=== PATIENT | female | born 1990 | race Caucasian/White ===

== ENCOUNTER 2018-01-18 22:53 | Emergency (ER) | payer BC ==
--- NOTE | 2018-01-18 23:18 | ED ---
Female Urogenital HPI - General Chief complaint: Vaginal Bleeding Stated complaint: -Cramping Time Seen by Provider: 01/18/18 23:00 Source: patient, RN notes reviewed Mode of arrival: ambulatory Limitations: no limitations - History of Present Illness Initial comments: This is a 27-year-old A1 female who presents to the emergency department with chief complaint of vaginal bleeding. Patient states that based on last menstrual period, she should be 5-6 weeks . She states she has yet to follow-up with an CORE SHAPER. Patient states that this evening at approximately 9 PM she began to develop some abdominal cramping and noticed a light pinkish blood while using the bathroom. Approximately 10 PM she noticed an increase in the vaginal bleeding and states that it was dripping. She states that it has not been a tremendous amount and has not filled an entire pad. Denies fevers or chills, nausea or vomiting, diarrhea or constipation. - Related Data Home Medications Medication Instructions Recorded Confirmed Pnv No.95/Ferrous Fum/Folic AC 1 each PO DAILY 01/18/18 01/18/18 [ Multivitamin Tablet] Allergies Allergy/AdvReac Type Severity Reaction Status Date / Time No Known Allergies Allergy Verified 01/18/18 22:58 Review of Systems ROS Statement: Those systems with pertinent positive or pertinent negative responses have been documented in the HPI. ROS Other: All systems not noted in ROS Statement are negative. Past Medical History Past Medical History: No Reported History History of Any Multi-Drug Resistant Organisms: None Reported Past Surgical History: Tonsillectomy Additional Past Surgical History / Comment(s): D&C Past Psychological History: No Psychological Hx Reported Smoking Status: Former smoker Past Alcohol Use History: None Reported Past Drug Use History: None Reported General Exam - General Exam Comments Initial Comments: General: Awake and alert, well-developed; in no apparent distress. HEENT: Head atraumatic, normocephalic. Pupils are equal, round and reactive to light. Extraocular movements intact. Oropharynx moist without erythema or exudate. Neck: Supple. Normal ROM. Cardiovascular: Regular rate and rhythm. No murmurs, rubs or gallops. Chest symmetrical. Respiratory: Lungs clear to auscultation bilaterally. No wheezes, rales or rhonchi. Normal respiratory effort with no use of accessory muscles. Abdomen: Soft, non-tender, non-distended. No rigidity, rebound or guarding. Normal bowel sounds in all 4 quadrants. Musculoskeletal: Normal ROM, no tenderness bilateral upper and lower extremities. Ambulating normally. Skin: [place], warm and dry without rashes or lesions. Neurological: Alert and oriented x3. CN II-XII grossly intact. Speech is fluent and answers are appropriate. No focal neuro deficits. Psychiatric: Normal mood and affect. No overt signs of depression or anxiety noted. Limitations: no limitations Course Vital Signs 01/18/18 22:55 Temperature 99.1 F Pulse Rate 79 Respiratory 20 Rate Blood Pressure 130/75 O2 Sat by Pulse 100 Oximetry Medical Decision Making - Medical Decision Making This is a 27-year-old female who states that she is 5-6 weeks who presents to the emergency department with chief complaint of vaginal bleeding. HCG Quant was 13.5. Ultrasound revealed an empty uterus and no evidence of an ectopic . Patient does have some abdominal cramping and continues to have some vaginal bleeding. Recommended repeat of serum hCG on January 21 as well as follow-up with her CORE SHAPER. Patient is in no acute distress and will be discharged home at this time. She is in agreement with plan and voices understanding. All questions were answered. - Lab Data Lab Results 01/18/18 01/18/18 Range/Units 23:33 23:33 HCG, Quant 13.5 mIU/mL Blood Type O Positive Blood Type Recheck No - Radiology Data Radiology results: report reviewed Obstetrical ultrasound impression: Uterus is empty. No adnexal mass or free fluid. No sign of ectopic . No endometrial thickening seen. As read by Dr. Calzada. Disposition Clinical Impression: Threatened Disposition: HOME SELF-CARE Condition: Good Instructions: Threatened Miscarriage (ED) Additional Instructions: Please have serum hCG Quant repeated on January 21. 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 Please follow up with primary care provider within 1-2 days. Return to emergency department if symptoms should worsen or any concerns arise. Referrals: Lester Donaldson DO [Primary Care Provider] - 1-2 days Time of Disposition: 00:50
--- NOTE | 2018-01-19 00:15 | US ---
EXAMINATION TYPE: US OB <= 14 wk fetus DATE OF EXAM: 01/18/2018 COMPARISON: NONE CLINICAL HISTORY: pain/vaginal bleeding. EXAM PERFORMED: Transvaginal (TV) and Transabdominal (TA) EXAM MEASUREMENTS: GESTATIONAL AGE / DATING Physician Established: Not yet established Dates by LMP: (5 weeks/2 days) EDC: 09/18/18 Dates by First Scan: No previous this is first scan Dates by Current Scan for: Unable to date by today's study MATERNAL ANATOMY Uterus: 7.6 x 4.2 x 5.7cm Right Ovary: 2.8 x 1.8 x 1.9cm Left Ovary: 2.1 x 1.9 x 3.2cm Post CDS / Adnexa: wnl Presence of free fluid: wnl GESTATION / SURVEY Endometrium measures 0.9cm IUP: No IUP seen at this time Nuchal Translucency 10-14wks (normal less than 3mm): Date of LMP: 12/12/17 Beta HcG (if available): Not available at this time IMPRESSION: Uterus is empty. No adnexal mass or free fluid. No sign of ectopic . No endometrial thickeni ng seen.
[2018-01-19 01:01] VITALS: BP 115/88; PULSE 64; RESP 18; TEMP 98
== END 2018-01-19 01:01 | disposition home or self-care (01) ==
LOC: EC 22:53
DX: O20.0 Threatened abortion (principal); Z3A.01 Less than 8 weeks gestation of pregnancy; Z87.891 Personal history of nicotine dependence; Z79.899 Other long term (current) drug therapy
CPT/HCPCS: 36415; 76801; 76817; 84702; 86900; 86901; 99284

== ENCOUNTER → 2018-01-20 | Outpatient (CLI) | payer BC | END | disposition home or self-care (01) | LOC: LABWHC1 15:37 | PROVIDERS: ATTEND Physician Assistant Medical | DX: O20.0 Threatened abortion (principal); Z3A.00 Weeks of gestation of pregnancy not specified | CPT/HCPCS: 36415; 84702 ==

== ENCOUNTER 2018-01-28 22:50 | Emergency (ER) | payer BC ==
--- NOTE | 2018-01-29 01:14 | US ---
EXAMINATION TYPE: US OB <=14 wks transvag DATE OF EXAM: 01/29/2018 COMPARISON: NONE CLINICAL HISTORY: Pain. Cramping EXAM PERFORMED: Transvaginal (TV) and Transabdominal (TA) EXAM MEASUREMENTS: GESTATIONAL AGE / DATING Physician Established: Not yet established Dates by LMP: (6 weeks/6 days) EDC: 09/18/2018 Dates by First Scan: (5 weeks/2 days) EDC: 09/18/2018 Dates by Current Scan for: No IUP seen at this time MATERNAL ANATOMY Uterus: 8.6 x 4.8 x 4.6 cm Right Ovary: 3.0 x 1.8 x 2.5 cm Left Ovary: 2.9 x 1.5 x 2.1 cm Post CDS / Adnexa: Wnl Presence of free fluid: NO Presence of corpus luteal cyst: No GESTATION / SURVEY IUP: No IUP seen at this time Nuchal Translucency 10-14wks (normal less than 3mm): Date of LMP: 12/12/2017 Beta HcG (if available): Not available at this time No IUP seen at this time, question possibe small gestational sac seen. IMPRESSION: There is a 2 mm tiny fluid collection in the uterine fundus. No adnexal mass or free fluid. Multiple follicular type cysts on both ovaries.
[2018-01-29 01:15] LABS: Amorphous Sediment,Urine Rare /hpf; Appearance,Urine Cloudy (Clear); Bacteria,Urine Many /hpf; Bilirubin,Urine Negative (Negative); Blood,Urine Negative (Negative); Color,Urine Yellow; Glucose,Urine (UA) Negative (Negative); Ketones,Urine Negative (Negative); Leukocyte Esterase,Urine Negative (Negative); Mucus,Urine Rare /hpf; Nitrite,Urine Negative (Negative); Protein,Urine Negative (Negative); RBC,Urine 6 /hpf (0-5); Squamous Epithelial Cell,Urine 12 /hpf (0-4); Urobilinogen,Urine <2.0 mg/dL (<2.0); WBC,Urine 1 /hpf (0-5)
--- NOTE | 2018-01-29 01:32 | ED ---
Female Urogenital HPI - General Chief complaint: Vaginal Bleeding Stated complaint: revisit/poss miscarriage Time Seen by Provider: 01/28/18 23:52 Source: patient, RN notes reviewed, old records reviewed Mode of arrival: ambulatory Limitations: no limitations - History of Present Illness Initial comments: This patient is a 27-year-old female presents emergency Department chief complaint of fainting vaginal bleeding today. She reports that she is early , she thinks that she is approximately 7 weeks based on her dates but has not sure if this is accurate. Patient states that she was seen a few weeks ago for threatened miscarriage. She did repeat blood work at her [facility]'s office on Saturday and her hCG was 30. They report that she had some lower pelvic pain and cramping. No significant bleeding at this time. No nausea vomiting, fevers, chills, changes in urination or bowel habits. - Related Data Home Medications Medication Instructions Recorded Confirmed Pnv No.95/Ferrous Fum/Folic AC 1 each PO DAILY 01/18/18 01/18/18 [ Multivitamin Tablet] Allergies Allergy/AdvReac Type Severity Reaction Status Date / Time No Known Allergies Allergy Verified 01/28/18 23:18 Review of Systems ROS Statement: Those systems with pertinent positive or pertinent negative responses have been documented in the HPI. ROS Other: All systems not noted in ROS Statement are negative. Past Medical History Past Medical History: No Reported History History of Any Multi-Drug Resistant Organisms: None Reported Past Surgical History: Tonsillectomy Additional Past Surgical History / Comment(s): D&C Past Psychological History: No Psychological Hx Reported Smoking Status: Former smoker Past Alcohol Use History: None Reported Past Drug Use History: None Reported General Exam - General Exam Comments Initial Comments: Well-appearing 27-year-old female. Patient presents very anxious. No acute distress. Limitations: no limitations General appearance: alert, in no apparent distress Head exam: Present: atraumatic, normocephalic, normal inspection Eye exam: Present: normal appearance, PERRL, EOMI. Absent: scleral icterus, conjunctival injection, periorbital swelling ENT exam: Present: normal exam, mucous membranes moist Neck exam: Present: normal inspection. Absent: tenderness, meningismus, lymphadenopathy Respiratory exam: Present: normal lung sounds bilaterally. Absent: respiratory distress, wheezes, rales, rhonchi, stridor Cardiovascular Exam: Present: regular rate, normal rhythm, normal heart sounds. Absent: systolic murmur, diastolic murmur, rubs, gallop, clicks GI/Abdominal exam: Present: soft, normal bowel sounds. Absent: distended, tenderness, guarding, rebound, rigid External exam: Present: normal external exam Speculum exam: Present: normal speculum exam, vaginal bleeding (Patient had scant vaginal bleeding noted. No significant clotting or major concerns at this time.). Absent: erythema, vaginal discharge, cervical discharge By manual exam: Present: normal by manual exam. Absent: cervical motion tenderness Back exam: Present: normal inspection Neurological exam: Present: alert, oriented X3, CN II-XII intact Psychiatric exam: Present: normal affect, normal mood Course Vital Signs 01/28/18 01/29/18 23:14 01:46 Temperature 99.2 F 98.0 F Pulse Rate 95 83 Respiratory 16 18 Rate Blood Pressure 106/68 109/66 O2 Sat by Pulse 98 99 Oximetry Medical Decision Making - Medical Decision Making 27-year-old female presents today chief complaint of vaginal bleeding concern for miscarriage. She states she is currently 7 weeks . Patient's hCG today is approximately 300. I discussed also be relatively normal compared to her Her last hCG. She does have some scant bleeding but there does not appear any clots or any obvious signs of miscarriage at this time. Ultrasound was unable to identify an intrauterine however there does appear to be a small what appears to be gestational sac within the uterus. Patient was informed of all his results. 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 Repeat blood work in 2 days. She had a previous blood type test in one to weeks ago which was O+. Discussed no need for RhoGAM. Patient agrees to treatment plan will comply. Return parameters were discussed. - Lab Data Lab Results 01/28/18 01/29/18 01/29/18 Range/Units 23:41 00:15 01:15 HCG, Quant 236.8 mIU/mL Urine Color Yellow Urine Appearance Cloudy H (Clear) Urine pH 7.0 (5.0-8.0) Ur Specific [place] 1.020 (1.001-1.035) Urine Protein Negative (Negative) Urine Glucose (UA) Negative (Negative) Urine Ketones Negative (Negative) Urine Blood Negative (Negative) Urine Nitrite Negative (Negative) Urine Bilirubin Negative (Negative) Urine Urobilinogen <2.0 (<2.0) mg/dL Ur Leukocyte Esterase Negative (Negative) Urine RBC 6 H (0-5) /hpf Urine WBC 1 (0-5) /hpf Ur Squamous Epith Cells 12 H (0-4) /hpf Amorphous Sediment Rare H (None) /hpf Urine Bacteria Many H (None) /hpf Urine Mucus Rare H (None) /hpf Trichomonas Ag (Rapid) Negative (Negative) - Radiology Data Radiology results: report reviewed Shows a 2 Mm Tiny Fluid Collection within the Uterine Fundus. No Adnexal Mass or Free Fluid. Multiple Follicular-type Cysts on Both Ovaries. Disposition Clinical Impression: Threatened miscarriage in early Disposition: HOME SELF-CARE Condition: Good Instructions: Threatened Miscarriage (ED) Additional Instructions: Patient has a follow-up with her [facility] and BP her blood work in approximately 2 days. Return to the emergency department if any alarming signs or symptoms occur. Referrals: Lester Donaldson DO [Primary Care Provider] - 1-2 days Time of Disposition: 01:31
[2018-01-29 01:47] VITALS: BP 109/66; PULSE 83; RESP 18; TEMP 98
[2018-01-30 16:20] LABS: C. trachomatis,PCR Negative (Neg,Equiv); Chlamydia trachomatis Source Vagina; N. gonorrhoeae,PCR Negative (Neg,Equiv); Neisseria Source Vagina
== END 2018-01-29 01:47 | disposition home or self-care (01) ==
LOC: EC 22:50
DX: O20.0 Threatened abortion (principal); Z87.891 Personal history of nicotine dependence; Z3A.01 Less than 8 weeks gestation of pregnancy
CPT/HCPCS: 36415; 76801; 76817; 81001; 84702; 87070; 87205; 87491; 87591; 87808; 99284

== ENCOUNTER → 2022-02-14 | Outpatient (CLI) | payer BC ==
[2022-02-14 15:20] LABS: T4, Free (Free Thyroxine) 0.74 ng/dL (0.78-2.19)
== END | disposition home or self-care (01) ==
LOC: LABWHC1 13:37
PROVIDERS: ATTEND Internal Medicine Endocrinology, Diabetes & Metabolism
DX: E05.90 Thyrotoxicosis, unspecified without thyrotoxic crisis or storm (principal)
CPT/HCPCS: 36415; 84439; 84443; 84445; 84480; 86376

== ENCOUNTER → 2024-10-27 | Outpatient (CLI) | payer BC ==
--- NOTE | 2024-10-27 14:42 | USB ---
Reason for Exam: Clinical finding. Patient History: Menarche at age 13. First Full-Term at age 20. Hysterectomy at age 33. Patient has history of breast feeding. Technique: Method: Targeted. Findings: The area of palpable concern of the left breast, the axilla of the left breast and the retroareolar of the left breast were scanned. No solid or cystic masses are identified.. Overall Assessment: Negative, BI-RAD 1 Management: Diagnostic Mammogram of the left breast in 6 months. A clinical breast exam by your physician is recommended on an annual basis and results should be correlated with mammographic findings. This exam should not preclude additional follow-up of suspicious palpable abnormalities. Results were given to the patient verbally at the time of exam. [facility], , 10/27/2024 2:39 PM. Electronically signed and approved by: Toi Silveira D.O. Radiologis
--- NOTE | 2024-10-27 14:46 | MM ---
Reason for Exam: Clinical finding. Baseline mammogram. Patient History: Menarche at age 13. First Full-Term at age 20. Hysterectomy at age 33. Patient has history of breast feeding. Prior Study Comparison: Patient's first Mammogram. Tissue Density: The breasts are heterogeneously dense, which may obscure small masses. Findings: Analyzed By CAD. The pattern is symmetrical. Focal asymmetry in the upper outer aspect left breast, this area largely disperses on compression. Palpable marker is placed on the left breast are previous palpable abnormality. Currently, no palpable abnormality by the patient is identified. No suspicious groups of microcalcifications, spiculated or lobular masses, architectural distortion or other secondary signs of malignancy are mammographically apparent. Overall Assessment: Incomplete: need additional imaging evaluation, BI-RAD 0 Management: Diagnostic Breast Ultrasound of the left breast. A negative mammogram report should not preclude additional follow up of suspicious palpable abnormalities. Patient should continue monthly self breast exam. A clinical breast exam by your physician is recommended on an annual basis and results should be correlated with mammographic findings. Note on Ella scores and lifetime risk: 1. A Ella score greater than 3% is considered moderate risk. If this is the case, consider specialist referral to assess eligibility for a risk reducing agent. 2. If overall lifetime risk for the development of breast cancer is 20% or higher, the patient may qualify for future screening with alternating mammogram and breast MRI. [facility], , 10/27/2024 2:42 PM. Electronically signed and approved by: Toi Silveira D.O. Radiologis
== END | disposition home or self-care (01) ==
LOC: RADMAMWWP 13:40
PROVIDERS: ATTEND Family Medicine
DX: Z12.31 Encounter for screening mammogram for malignant neoplasm of breast (principal); R92.333 Mammographic heterogeneous density, bilateral breasts
CPT/HCPCS: 77062; 77066

== ENCOUNTER → 2025-04-06 | Outpatient (CLI) | payer BC ==
--- NOTE | 2025-04-06 13:59 | CT ---
EXAMINATION TYPE: CT abdomen pelvis wo con DATE OF EXAM: 04/06/2025 COMPARISON: None CLINICAL INDICATION: Female, 34 years old with history of R10.31 RIGHT LOWER QUADRANT PAIN; PHH, RLQ pain TECHNIQUE: CT scan of the abdomen and pelvis is performed without oral or IV contrast. CT DLP: [address] CTDI: mGy Automated exposure control for dose reduction was used. FINDINGS: Within the limitations of a non-contrast study, the following observations are made. The lungs are clear. Gallbladder is normal and there is no gallstone, wall thickening, pericholecystic fluid or distention . There is no biliary ductal dilatation. There is no organomegaly of the liver, pancreas, spleen or adrenal glands. There are no renal calcifications or hydronephrosis. The caliber of the abdominal aorta is normal and there is no retroperitoneal adenopathy or hemorrhage . The bowel loops are normal in caliber is no evidence of obstruction. No inflammatory changes are iden tified in the mesentery and there is no free intraperitoneal air or fluid. There is a 3 cm mass since the right adnexa. 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 There is no free fl uid in the cul-de-sac The osseous structures and soft tissues are unremarkable. IMPRESSION: No acute changes within the abdomen or pelvis. [facility], Workstation: DES 04/06/2025 1:57 PM
== END | disposition home or self-care (01) ==
LOC: RADCTMAIN 12:56
PROVIDERS: ATTEND Family Medicine
DX: R10.31 Right lower quadrant pain (principal)
CPT/HCPCS: 74176